=== PATIENT | female | born 1995 | race African-American/Black ===

== ENCOUNTER 2019-12-02 18:46 | Emergency (ER) | payer BC ==
--- NOTE | 2019-12-02 20:12 | UC ---
Throat Pain/Nasal Solomon HPI - HPI Summary HPI Summary: 24-year-old woman comes in with a chief complaint of one week of chills cough chest congestion and nasal congestion sore throat and myalgias. Lately she's been more short of breath especially with activity. Has taken some Tylenol which helped some with the symptoms. Her sister has been tested for Covid but the results are not back yet and her sisters diagnosed with bronchitis and is on antibiotics. She has been feeling somewhat dizzy or lightheaded when she stands up and walks around. - History of Current Complaint Chief Complaint: UCRespiratory Stated Complaint: SOB,HEADACHE Time Seen by Provider: 12/02/19 19:57 Hx Last Menstrual Period: 11/25/19 Pain Intensity: 6 - Allergies/Home Medications Allergies/Adverse Reactions: Allergies Allergy/AdvReac Type Severity Reaction Status Date / Time metronidazole [From Flagyl] Allergy Hives Verified 12/02/19 18:57 environmental Allergy Congestion Uncoded 12/02/19 18:57 Home Medications: Home Medications Multivitamin [Multivitamins] 1 cap PO DAILY 04/30/19 [History Confirmed 12/02/19 ] Azithromycin TAB* [Zithromax TAB (Z-LATONYA) 250 mg #6 tabs] 2 tab PO .TODAY, THEN 1 DAILY #1 latonya 12/02/19 [Rx] PMH/Surg Hx/FS Hx/Imm Hx Previously Healthy: Yes - Surgical History Surgical History: Yes Surgery Procedure, Year, and Place: wisdom teeth removed. 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, 2007 - Family History Known Family History: Positive: Non-Contributory Negative: Blood Disorder - Social History Alcohol Use: Occasionally Substance Use Type: None Smoking Status (MU): Never Smoked Tobacco Review of Systems All Other Systems Reviewed And Are Negative: Yes Constitutional: Positive: Chills, Other - see hpi Skin: Positive: Negative Eyes: Positive: Negative ENT: Positive: Sore Throat, Nasal Discharge, Sinus Congestion Respiratory: Positive: Shortness Of Breath, Cough, Other - see hpi Cardiovascular: Positive: Other - see hpi Gastrointestinal: Positive: Negative Motor: Positive: Negative Neurovascular: Positive: Negative Musculoskeletal: Positive: Myalgia Neurological/Mental Status: Positive: Negative Psychological: Positive: Negative Is Patient Immunocompromised?: No Physical Exam - Summary Physical Exam Summary: My examination interview was performed via ipad visual telemedicine with the patient in the clinic. This does limit the physical examination. Triage Information Reviewed: Yes Appearance: No Pain Distress, Well-Nourished, Ill-Appearing - mild Eyes: Positive: Conjunctiva Clear ENT: Positive: Nasal congestion, Nasal drainage Neck: Positive: Supple Respiratory: Positive: No respiratory distress Musculoskeletal: Positive: ROM Intact Neurological: Positive: Alert Psychological: Positive: Age Appropriate Behavior Throat Pain/Nasal Course/Dx - Course Course Of Treatment: DISCUSSED VIRAL VERSES BACTERIAL INFECTION AND THE ROLE OF ANTIBIOTICS. THE PATIENT PREFERS TO TO BE ON ANTIBIOTICS AT THIS TIME. Strep and flu were negative. We discussed symptomatic treatment. Patient will self isolate and follow-up with [facility]. She is to get reevaluated if not improving or worse. She is to go to the emergency department if she gets worse. - Differential Dx/Diagnosis Provider Diagnosis: Bronchitis, Influenza-like illness Discharge ED - Sign-Out/Discharge Documenting (check all that apply): Patient Departure All imaging exams completed and their final reports reviewed: No Studies - Discharge Plan Condition: Stable Disposition: HOME Prescriptions: Azithromycin TAB* [Zithromax TAB (Z-LATONYA) 250 mg #6 tabs] 2 tab PO .TODAY, THEN 1 DAILY #1 latonya Patient Education Materials: Acute Bronchitis (ED), Viral Syndrome (ED) Referrals: Maurilio PATEL,Crystal CLERK [employer]KS [Primary Care Provider] - Additional Instructions: PLACE YOURSELF IN HOME ISOLATION. [facility]. CONTACT THEM TOMORROW IF YOU HAVE NOT HEARD FROM THEM. FOLLOW UP WITH YOUR DOCTOR IF NOT COMPLETELY IMPROVED. GO TO THE EMERGENCY DEPARTMENT IF NOT IMPROVED OR WORSE OR ANY QUESTIONS OR CONCERNS. - Billing Disposition and Condition Condition: STABLE Disposition: Home
[2019-12-02 20:53] LABS: Influenza A Molecular Negative (Negative); Influenza B Molecular Negative (Negative)
== END 2019-12-02 21:40 | disposition home or self-care (01) ==
LOC: UCEAST 18:46
DX: J40 Bronchitis, not specified as acute or chronic (principal); J02.9 Acute pharyngitis, unspecified; R09.81 Nasal congestion; R06.02 Shortness of breath; Z20.828 Contact with and (suspected) exposure to other viral communicable diseases
CPT/HCPCS: 87651; 99213; G0463; Q3014; U0002